=== PATIENT | male | born 1995 | race Caucasian/White ===

== ENCOUNTER 2018-09-06 18:45 | Emergency (ER) | payer SELFPAY ==
[2018-09-06 19:07] VITALS: BP 126/81; PULSE 74; TEMP 98.5; BMI 23.5
--- NOTE | 2018-09-06 19:10 | PDOC ---
Rapid Medical Evaluation Chief Complaint: Pain, Acute Time Seen by Provider: 09/06/18 19:06 Medical Evaluation: Allergies Allergy/AdvReac Type Severity Reaction Status Date / Time No Known Allergies Allergy Verified 09/06/18 19:05 Vital Signs Temp Pulse Resp BP Pulse Ox 98.5 F 74 17 126/81 99 09/06/18 19:05 09/06/18 19:05 09/06/18 19:05 09/06/18 19:05 09/06/18 19:05 09/06/18 19:07 I have performed a brief in-person evaluation of this patient. The patient presents with a chief complaint of: gas-like abd pain x on and off " for a while" . no fevers/ N/V/D Pertinent physical exam findings: well, no pain/ swelling / tenderness I have ordered the following: nothing The patient will proceed to the ED for further evaluation. Discharge Disposition - Diagnosis Gastritis Qualifiers: Gastritis type: other gastritis Chronicity: unspecified Gastritis bleeding: without bleeding Qualified Code(s): K29.60 - Other gastritis without bleeding - Discharge Dispostion Disposition: HOME - Referrals - Patient Instructions - Post Discharge Activity
--- NOTE | 2018-09-06 19:32 | PDOC ---
History of Present Illness - General Chief Complaint: Pain, Acute Stated Complaint: STOMACH PAIN Time Seen by Provider: 09/06/18 19:06 - History of Present Illness Initial Comments: 09/06/18 19:30 22-year-old healthy male without comorbidities presents for evaluation of 3 months of abdominal gargling without pain. He has no other associated symptoms. Past History - Past Medical History Allergies/Adverse Reactions: Allergies Allergy/AdvReac Type Severity Reaction Status Date / Time No Known Allergies Allergy Verified 09/06/18 19:05 Home Medications: Ambulatory Orders Famotidine [Pepcid] 20 mg PO DAILY #10 tablet 09/06/18 - Suicide/Smoking/Psychosocial Hx Smoking History: Never smoked Review of Systems - Review of Systems Constitutional: No: Fever ABD/GI: Yes: See HPI, Indigestion *Physical Exam - Vital Signs Last Vital Signs Temp Pulse Resp BP Pulse Ox 98.5 F 74 17 126/81 99 09/06/18 19:05 09/06/18 19:05 09/06/18 19:05 09/06/18 19:05 09/06/18 19:05 - Physical Exam Comments: 09/06/18 19:30 HEAD: NC/AT EYES: Conjuntiva clear Ears: Canals and TM's normal NOSE: No d/c THROAT: Moist mucous membrances, oral pharanx clear, uvula midline NECK: Supple without adenopathy CARDIAC: S1 S2 LUNGS: CTA Full and Equal breath sounds ABDOMEN: Soft NT ND MS: Full ROM in all joints without edema NEUROLOGIC: No gross sensory or motor deficits, NVID SKIN: Normal color and temperature no lesions or rashes Medical Decision Making - Medical Decision Making 09/06/18 19:31 Benign examination I'll place him on an [place] and have her follow-up with gastroenterology history sounds like food intolerance or GERD *DC/Admit/Observation/Transfer Diagnosis at time of Disposition: Gastritis Qualifiers: Gastritis type: other gastritis Chronicity: unspecified Gastritis bleeding: without bleeding Qualified Code(s): K29.60 - Other gastritis without bleeding - Discharge Dispostion Disposition: HOME Condition at time of disposition: Stable Decision to Admit order: No - Prescriptions Prescriptions: Famotidine [Pepcid] 20 mg PO DAILY #10 tablet - Referrals Referrals: Sunday Ortiz MD [Primary Care Provider] - Quirino Hills MD [Staff Physician] - - Patient Instructions Printed Discharge Instructions: DI for Gastritis, Gastritis Additional Instructions: Return to the emergency room should symptoms worsen or go unresolved. Please take the medication as directed and follow-up with gastroenterology once 2 days for further evaluation and treatment options. - Post Discharge Activity
== END 2018-09-06 19:35 | disposition home or self-care (01) ==
LOC: JERFT 18:45
DX: K29.60 Other gastritis without bleeding (principal)
CPT/HCPCS: 99281-25

== ENCOUNTER 2021-07-06 22:28 | Emergency (ER) | payer BC, OTHER ==
[2021-07-06 23:11] VITALS: BP 130/80; PULSE 85; TEMP 97.9; BMI 27.3
[2021-07-07] MEDS ORDERED: IBUPROFEN 600 MG TABLET (FP) PO ONE (00:20)
== END 2021-07-07 01:57 | disposition home or self-care (01) ==
LOC: JER 22:28
DX: R05 Cough (principal); B34.9 Viral infection, unspecified
CPT/HCPCS: 71046-TC-FY; 93005; 93010; 99284-25; C9803; U0003; U0005